=== PATIENT | male | born 1965 | race Caucasian/White ===

== ENCOUNTER → 2024-01-30 07:31 | Outpatient (REF) | payer OTHER, SELFPAY | LOC: PET 07:31 | PROVIDERS: ATTENDING PHYSICIAN Internal Medicine Hematology & Oncology | DX: C83.11 Mantle cell lymphoma, lymph nodes of head, face, and neck (principal) | CPT/HCPCS: 78815; A9552 ==

== ENCOUNTER 2025-02-02 06:21 | Day surgery (SDC) | payer BC, SELFPAY ==
[2025-02-02 07:07] LABS: Glucose - Point of Care 107 mg/dl (70-99)
== END 2025-02-02 08:26 | disposition home or self-care (01) ==
LOC: GI 06:21
PROVIDERS: ATTENDING PHYSICIAN Internal Medicine
DX: Z12.11 Encounter for screening for malignant neoplasm of colon (principal); K64.9 Unspecified hemorrhoids; K63.5 Polyp of colon; Z86.0101 Personal history of adenomatous and serrated colon polyps
CPT/HCPCS: 45380; 88305; 82962

== ENCOUNTER → 2025-02-10 08:34 | Outpatient (REF) | payer BC, SELFPAY | LOC: PET 08:34 | PROVIDERS: ATTENDING PHYSICIAN Internal Medicine Hematology & Oncology | DX: C83.11 Mantle cell lymphoma, lymph nodes of head, face, and neck (principal) | CPT/HCPCS: 78815; A9552 ==

== ENCOUNTER → 2025-02-24 15:50 | Outpatient (REF) | payer BC, SELFPAY | LOC: HWRCS 15:50 | PROVIDERS: ATTENDING PHYSICIAN Internal Medicine Hematology & Oncology; FAMILY PHYSICIAN Family Medicine | DX: C83.11 Mantle cell lymphoma, lymph nodes of head, face, and neck (principal); D80.1 Nonfamilial hypogammaglobulinemia | CPT/HCPCS: 93306 ==

== ENCOUNTER → 2025-02-25 13:58 | Outpatient (REF) | payer BC, SELFPAY | LOC: RCS 13:58 | PROVIDERS: ATTENDING PHYSICIAN Internal Medicine Hematology & Oncology; FAMILY PHYSICIAN Family Medicine | DX: C83.11 Mantle cell lymphoma, lymph nodes of head, face, and neck (principal); D80.1 Nonfamilial hypogammaglobulinemia | CPT/HCPCS: 93005 ==

== ENCOUNTER → 2025-08-19 07:59 | Outpatient (REF) | payer BC, SELFPAY ==
[2025-08-19 07:48] LABS: Glucose 129 mg/dl (70-99)
== END ==
LOC: PET 07:59
PROVIDERS: ATTENDING PHYSICIAN Internal Medicine Hematology & Oncology
DX: C83.11 Mantle cell lymphoma, lymph nodes of head, face, and neck (principal); D80.1 Nonfamilial hypogammaglobulinemia
CPT/HCPCS: 36415; 82947